=== PATIENT | female | born 1995 | race Hispanic/Latino ===

== ENCOUNTER 2017-08-20 19:44 | Observation (INO) | payer BC ==
[2017-08-20 21:48] LABS: BASO # 0.1 K/uL (0.0-0.2); BASO % 0.9 % (0.0-2.0); EOS # 0.1 K/uL (0.0-0.7); EOS % 1.6 % (0.0-4.0); HEMATOCRIT 41.6 % (34.0-47.0); LYMPH % 36.5 % (20.0-40.0); MEAN CORPUSCULAR HEMOGLOBIN 29.3 pg (27.0-31.0); MEAN CORPUSCULAR HGB CONC 32.9 g/dL (33.0-37.0); MEAN PLATELET VOLUME 8.4 fl (7.2-11.7); MONO # 0.5 K/uL (0.0-0.8); MONO % 6.4 % (0.0-10.0); NEUT # 4.6 K/uL (1.8-7.0); NEUT % 54.6 % (50.0-75.0); RED CELL DISTRIBUTION WIDTH 12.4 % (11.5-14.5); WHITE BLOOD COUNT 8.4 K/uL (4.8-10.8)
[2017-08-20 21:57] LABS: PARTIAL THROMBOPLASTIN TIME 32.5 Seconds (25.6-37.1)
[2017-08-20 22:07] LABS: ALCOHOL SERUM < 10 mg/dl (0-10); ALKALINE PHOSPHATASE 81 U/L (38-126); ALT/SGPT 32 U/L (9-52); AST/SGOT 27 U/L (14-36); BILIRUBIN,TOTAL 0.4 mg/dl (0.2-1.3); BLOOD UREA NITROGEN 14 mg/dl (7-17); CALCIUM 9.6 mg/dL (8.4-10.2); CARBON DIOXIDE 24 mmol/L (22-30); CHLORIDE 102 mmol/L (98-107); GFR AFRICAN-AMERICAN > 60; GLUCOSE,RANDOM 97 mg/dL (65-105); MAGNESIUM 2.3 MG/DL (1.6-2.3); PHOSPHOROUS 4.1 mg/dl (2.5-4.5); POTASSIUM 4.2 MMOL/L (3.6-5.0); SODIUM 141 mmol/l (132-148)
[2017-08-20 22:09] LABS: ALB/GLOB RATIO 1.4 (1.0-2.1)
--- NOTE | 2017-08-20 22:32 | ED PDOC ---
HPI: Headache Time Seen by Provider: 08/20/17 20:37 Chief Complaint (Nursing): Headache Chief Complaint (Provider): Facial Weakness and Headache History Per: Patient History/Exam Limitations: no limitations Onset/Duration Of Symptoms: Days (x 1) Additional Complaint(s): Jocelyn is a 21 year old female who presents to the Emergency Department complaining of facial weakness and headache. Patient reports that she had headache since Sunday associated with lots of tingling with her face and difficulty moving her face bilaterally. Describes it as worst headache with an emphasis on her right side of her neck. Reports that all day today she felt she was going to pass out. Denies any lateralling weakness arm and leg. States legs generally feel heavy today. Reports 2 Saturdays ago that she had mild headache and that took 3 tabs of advil PM. At that time, she felt lightheaded and felt that she was going to pass out, but the following day resolved. Reports mild pinching in her chest. Denies shortness of breath and blurry vision. Never diagnosed with ADHD. Admits to taking unprescribed adderall for steading. Reports to drinking on Sunday and Sunday, but not on Sunday. PMD: Provider in [place], [place] Against Medical Advice - AMA Patient Left Against Medical Advice: The patient declines admission to the hospital and wishes to leave the Emergency Department. This action is against my medical advice. This decision was made with informed refusal. The patient was told that admission to the hospital is necessary. Explanation of the reasons why were discussed. The risks of leaving were explained to the patient and include, but are not limited to, worsening of known or currently unknown conditions, permanent disability and from undiagnosed or untreated conditions. The patient has the capacity to make this informed decision and understands my explanation of the current medical problem and risks of leaving. The patient voluntarily accepts these risks and signed an AMA form documenting our conversation. The patient was given the opportunity to ask questions and reconsider. The patient was encouraged to return to the Emergency Department at any time for further care. Past Medical History Reviewed: Historical Data, Nursing Documentation, Vital Signs Vital Signs: Last Vital Signs Temp 98 F 08/20/17 20:27 Pulse 71 08/20/17 20:27 Resp 15 08/20/17 20:27 BP 145/97 H 08/20/17 20:27 Pulse Ox 98 08/20/17 20:27 - Medical History PMH: No Chronic Diseases - Surgical History Other surgeries: Sinus Surgery - Family History Family History: States: Unknown Family Hx - Social History Current smoker - smoking cessation education provided: No Alcohol: Social Drugs: Denies - Home Medications Home Medications: Ambulatory Orders Medication Instructions Recorded No Known Home Med 08/20/17 - Allergies Allergies/Adverse Reactions: Allergies Allergy/AdvReac Type Severity Reaction Status Date / Time No Known Allergies Allergy Verified 08/20/17 20:30 Review of Systems ROS Statement: Except As Marked, All Systems Reviewed And Found Negative (and as per HPI) Constitutional: Positive for: Weakness (Facial) Neurological: Positive for: Headache. Negative for: Numbness, Other (blurry vision) Psych: Negative for: Other (focal weakness) Physical Exam - Reviewed Nursing Documentation Reviewed: Yes Vital Signs Reviewed: Yes - Physical Exam Appears: Positive for: Non-toxic, In Acute Distress Head Exam: Positive for: ATRAUMATIC, NORMOCEPHALIC Skin: Positive for: Warm, Dry Eye Exam: Positive for: EOMI, PERRL. Negative for: Nystagmus ENT: Negative for: Pharyngeal Erythema, Tonsillar Exudate Neck: Positive for: Painless ROM, Supple Cardiovascular/Chest: Positive for: Regular Rate, Rhythm, Chest Non Tender. Negative for: Murmur Respiratory: Positive for: Normal Breath Sounds. Negative for: Wheezing, Respiratory Distress Gastrointestinal/Abdominal: Positive for: Soft. Negative for: Tenderness Back: Positive for: Normal Inspection. Negative for: Decreased ROM Extremity: Positive for: Normal ROM. Negative for: Deformity Neurologic/Psych: Positive for: Alert, Oriented (x3), Motor/Sensory Deficits ( decreased sensation bilateral face in all facial nerve distributions, bilateral decreased facial movement) - Laboratory Results Result Diagrams: 08/20/17 21:41 08/20/17 21:41 - ECG O2 Sat by Pulse Oximetry: 98 (RA) Pulse Ox Interpretation: Normal Medical Decision Making Medical Decision Making: Time: 21:21 Impressions: Headache and Facial Parentheses Differentials includes but not limited to: Electrolyte abnormalities, dehydration, brain mass, bilateral bells palsy, neuropathy, myasthenia gravis Plan: - Type and Screen - EKG - CT Head without Contrast - Alcohol Serum - CMP - Creatine Phosphokinase - Drug Screen, Urine - Magnesium - Phosphorous - Thyroid Stimulating Hormone - CBC - Partial Thromboplastin Time - Prothrombin Time - Acetylcholine Rec Bind AB Time: 22:11 FINDINGS: Brain: No intracranial hemorrhage. No mass. No definite edema. Ventricles: No hydrocephalus. Bones/joints: No acute fracture. Probable chronic nasal bone fractures. Soft tissues: Unremarkable. Sinuses: No acute sinusitis. Mastoid air cells: No mastoid effusion. Orbits: Unremarkable as visualized. IMPRESSION: 1. No acute intracranial abnormality. 2. Incidental/non-acute findings are described above. DW pt findings. Pt reporting that now her feet/ankles feel very weak. Concern of worsening neurologic pathology and advised hospitalization for full workup. Pt initially agreed. Time: 22:[address] Sneed (Neurologist). Agrees w hospitalization for further workup. [id number] Pt's family wants to leave the hospital due to concerns about insurance. Understands risks and signed AMA paperwork. Scribe Attestation: Documented by Steven Ivan, acting as a scribe for Melani Tavarez MD. Provider Scribe Attestation: All medical record entries made by the Scribe were at my direction and personally dictated by me. I have reviewed the chart and agree that the record accurately reflects my personal performance of the history, physical exam, medical decision making, and the department course for this patient. I have also personally directed, reviewed, and agree with the discharge instructions and disposition. Disposition - Clinical Impression Clinical Impression: Facial paralysis, Severe headache Discussed With DrOlga Lidia: Mickey Mantilla Doctor Will See Patient In The: Hospital Counseled Patient/Family Regarding: Studies Performed, Diagnosis - Disposition Disposition: Against Medical Advice Disposition Time: 22:00 Condition: UNKNOWN
[2017-08-20 22:42] LABS: THYROID STIMULATING HORMONE 2.13 mIU/ML (0.46-4.68)
[2017-08-20 23:36] VITALS: BP 119/79; PULSE 67; RESP 18; TEMP 98.2
[2017-08-21 00:13] VITALS: O2SAT 98
--- NOTE | 2017-08-21 08:24 | CARD ---
APPROVED REPORT EKG Measurement Heart [id number] <Conclusion> Normal sinus rhythm Normal ECG
--- NOTE | 2017-08-21 09:36 | CT ---
PROCEDURE: CT HEAD WITHOUT CONTRAST. HISTORY: headache facial paralysis bilateral COMPARISON: None available. TECHNIQUE: Axial computed tomography images were obtained through the head/brain without intravenous contrast. Radiation dose: Total exam DLP = 834.5 mGy-cm. This CT exam was performed using one or more of the following dose reduction techniques: Automated exposure control, adjustment of the mA and/or kV according to patient size, and/or use of iterative reconstruction technique. FINDINGS: HEMORRHAGE: No intracranial hemorrhage. BRAIN: No mass effect or edema. No atrophy or chronic microvascular ischemic changes. VENTRICLES: Unremarkable. No hydrocephalus. CALVARIUM: Unremarkable. PARANASAL SINUSES: Unremarkable as visualized. No significant inflammatory changes. MASTOID AIR CELLS: Unremarkable as visualized. No inflammatory changes. OTHER FINDINGS: Probable chronic nasal bone fractures. IMPRESSION: No acute intracranial pathology.
== END 2017-08-21 00:20 | disposition left against medical advice (07) ==
LOC: H.ER 19:44 → H.ERHOLD 23:03
PROVIDERS: ADMIT Family Medicine; ATTEND Family Medicine
DX: G51.0 Bell's palsy (principal); R51 Headache
CPT/HCPCS: 70450; 80053; 81025; 82550; 83519; 83735; 84100; 84443; 85025; 85610; 85730; 86850; 86900; 93005; 99284; G0378; G0480